=== PATIENT | male | born 1960 | race Caucasian/White ===

== ENCOUNTER 2016-12-05 00:27 | Outpatient (CLI) | payer OTHER | END 2016-12-05 00:28 | disposition critical access hospital (66) | LOC: EMS 00:27 | PROVIDERS: ATTEND Surgery | DX: M54.5 Low back pain (principal) | CPT/HCPCS: A0425; A0429 ==

== ENCOUNTER 2016-12-05 00:47 | Emergency (ER) | payer OTHER ==
[2016-12-05] MEDS ORDERED: LIDOCAINE PATCH 5% TOP STA (01:09)
[2016-12-05] MEDS ORDERED: CYCLOBENZAPRINE 10 MG TABLET PO STA (01:09)
[2016-12-05] MEDS ORDERED: oxyCOD/ACETAMIN 5 MG/325 MG TABLET PO STA (01:09)
[2016-12-05] MEDS ORDERED: IBUPROFEN 400 MG TABLET PO STA (01:09)
[2016-12-05] MEDS ORDERED: CYCLOBENZAPRINE 10 MG TABLET PO ONE (01:20)
[2016-12-05] MEDS ORDERED: oxyCOD/ACETAMIN 5 MG/325 MG TABLET PO ONE (01:20)
[2016-12-05] MEDS ORDERED: IBUPROFEN 400 MG TABLET PO ONE (01:20)
[2016-12-05] MEDS ORDERED: LIDOCAINE PATCH 5% TOP ONE (01:21)
--- NOTE | 2016-12-05 01:27 | ED Physician Documentation ---
History of Present Illness - Stated complaint Stated Complaint: BACK PAIN - Chief complaint Chief Complaint: Back Pain - Additonal information Additional information: hx from pt 56 male hx back pain acute exacerbation of pain tonight about 8 PM no specific injury recalled pain is left lower back no fever no abd pain no numbness or weakness including no saddle anesthesia no urinary incont no fecal incont no dysuria or hematuria no recent surgery or dental work and denies IV meds/drugs Review of Systems Constitutional: denies: Fever, Chills Throat: denies: Sore throat Cardiac: denies: Chest pain / pressure Respiratory: denies: Dyspnea GI: denies: Abdominal Pain : denies: Dysuria, Incontinent, Hematuria Musculoskeletal: reports: Back pain Neurologic: denies: Focal weakness, Numbness Endocrine: denies: Easy bruising / bleeding Immunocompromised: denies: Immunocompromised PD PAST MEDICAL HISTORY - Past Medical History GI: Cholelithiasis - Past Surgical History HEENT: Tonsil/Adenoidectomy - Present Medications Home Medications: Ambulatory Orders Medication Instructions Recorded Confirmed Cyclobenzaprine [Flexeril] 10 mg PO TID PRN #20 tablet 12/05/16 Ibuprofen [Motrin] 400 mg PO Q6H PRN #30 tablet 12/05/16 Lidocaine Patch 5% [Lidoderm Patch] 1 each TOP DAILY PRN #10 patch 12/05/16 - Allergies Allergies/Adverse Reactions: Allergies Allergy/AdvReac Type Severity Reaction Status Date / Time No Known Drug Allergies Allergy Verified 12/05/16 00:54 - Social History Does the pt smoke?: No Smoking Status: Never smoker Does the pt drink ETOH?: No Does the pt have substance abuse?: No - Immunizations Immunizations are current?: Yes - POLST Patient has POLST: No PD ED PE NORMAL - Vitals Vital signs reviewed: Yes - General General: Alert and oriented X 3 - Cardiac Cardiac: RRR - Respiratory Respiratory: No respiratory distress, Clear bilaterally - Abdomen Abdomen: Soft, Non tender, Other (no pulsatile mass) - Back Back: No spinal TTP (and no redness warmth or swelling), Other (soft tissue TTP low left lumbar region with limited ROM 2/2 pain) - Derm Derm: Normal color - Neuro Neuro: Other (no saddle anesthesia, nl sensation through out, hip flex/kneeext/ foot dorsi and plantar flex/great toe ext all 5/5, no clonus, patellar DTR 2/4 pelon, neg SLR) Results - Vitals Vitals: Vital Signs - 24 hr 12/05/16 00:49 Temperature 37.1 C Heart Rate 82 Respiratory 16 Rate Blood Pressure 141/80 H O2 Saturation 97 Oxygen O2 Source Room air PD MEDICAL DECISION MAKING - ED course ED course: based on hx and exam seems like muscular low back pain with a hx of the same and no red flags are noted and I feel AAA, epidural abscess, cauda equina, pyelo , renal colic etc are unlikely will tx symptomatically pt felt better and was dced Departure - Departure Disposition: Home, Self Care Clinical Impression: Back pain Qualifiers: Back pain location: low back pain Chronicity: acute Back pain laterality: left Sciatica presence: without sciatica Qualified Code(s): M54.5 - Low back pain Condition: Good Instructions: ED Neck Back Pain General, ED Back Care Tips Prescriptions: Cyclobenzaprine [Flexeril] 10 mg PO TID PRN #20 tablet PRN Reason: Spasms Lidocaine Patch 5% [Lidoderm Patch] 1 each TOP DAILY PRN #10 patch PRN Reason: Pain Ibuprofen [Motrin] 400 mg PO Q6H PRN #30 tablet PRN Reason: Pain Comments: Please follow up with your PMD to get your blood pressure rechecked - it was high today Forms: Activity restrictions
--- NOTE | 2016-12-05 03:34 | CT Preliminary Report ---
Exam: CT Abdomen/Pelvis W/O IMPRESSION: 1. Mild to moderate left hydroureteronephrosis due to a 2.5 mm another left UVJ stone, almost inside the bladder. 2. No intrarenal stones. 3. No bowel obstruction. Appendix is normal. [facility] SITE ID: [id number]
--- NOTE | 2016-12-05 03:41 | CT Report ---
EXAM: CT ABDOMEN AND PELVIS (CT KUB) EXAM DATE: 12/05/2016 03:00 AM. CLINICAL HISTORY: Back pain and hematuria. COMPARISONS: None. TECHNIQUE: Routine axial helical CT imaging was performed through the abdomen and pelvis without IV c ontrast. Reconstructions: Coronal and sagittal. In accordance with CT protocol optimization, one or more of the following dose reduction techniques w ere utilized for this exam: automated exposure control, adjustment of mA and/or KV based on patient s ize, or use of iterative reconstructive technique. FINDINGS: Right Kidney/Ureter: No stones. No hydronephrosis or hydroureter. No definite renal mass within the c onfines of a non-contrast exam. Left Kidney/Ureter: There is [id number] left-sided hydroureteronephrosis due to an obstructing 2.5 mm stone, almost inside the bladder. Associated perinephric and periureteric fat stranding is pre sent. No additional intrarenal stones demonstrated at this time. No definite renal mass within the co nfines of a non-contrast exam. Abdominal Solid Organs: Multiple gallstones. Scattered low-density foci within the liver, some of whi ch represent cysts. Others are difficult to characterize due to their small size. Abdominal parenchym al organs are without significant abnormality within the confines of a noncontrast exam. Bowel: No evidence of bowel obstruction. Appendix: Normal. Lymph Nodes: No definite pathologic lymphadenopathy. Fluid: No significant ascites. Vasculature: Normal caliber aorta. Pelvis: No bladder stones. Visualized pelvic organs are without significant abnormality within the co nfines of a noncontrast exam. Bones: No definite suspicious bony lesions demonstrated. Lower Chest: No significant lung base consolidation or effusion. IMPRESSION: 1. Mild to moderate left hydroureteronephrosis due to a 2.5 mm left UVJ stone, almost inside the blad kate. 2. No intrarenal stones. 3. No bowel obstruction. Appendix is normal. [facility] Referring Provider Line: [phone] SITE ID: [id number]
[2016-12-05 03:45] LABS: BILIRUBIN,URINE NEGATIVE (NEGATIVE)
[2016-12-05 03:53] LABS: UA w/ MICROSCOPIC CHARGE YES
[2016-12-05 03:54] LABS: UR CULTURE IF IND NOT INDICATED; WBC,URINE 0-3 /HPF (0-3)
[2016-12-05] MEDS ORDERED: oxyCODONE/ACET 5/325 Prepack 4 PO STA (04:04)
[2016-12-05] MEDS ORDERED: oxyCODONE/ACET 5/325 Prepack 4 PO ONE (04:12)
[2016-12-05 04:16] VITALS: BP 127/69
== END 2016-12-05 04:41 | disposition home or self-care (01) ==
LOC: EDBD → ED 00:47
DX: N13.2 Hydronephrosis with renal and ureteral calculous obstruction (principal); M54.5 Low back pain; R31.9 Hematuria, unspecified
CPT/HCPCS: 74176; 81001; 99283; A9270; 81003; 87086